=== PATIENT | female | born 1990 | race African-American/Black ===

== ENCOUNTER 2017-02-22 10:39 | Emergency (ER) | payer OTHER ==
[~2017-02-22] VITALS: Ht 157.5 cm; Wt 60.0 kg
[~2017-02-22 10:39] MED LIST: RANI150 PO; ZOFR4TAB3 SL
[2017-02-22 10:41] VITALS: BP 126/72; PULSE 130; RESP 20; TEMP 100.4; O2SAT 100
[2017-02-22 10:44] VITALS: PULSE 129; RESP 20; TEMP 99.7; O2SAT 99
[2017-02-22 11:06] VITALS: TEMP 100.6
[2017-02-22] MEDS ORDERED: ONDANSETRON ODT 4 MG TAB PO ONE (11:15)
--- NOTE | 2017-02-22 11:52 | PD ---
HPI Chief Complaint: Cold / Flu Symptoms Time Seen by Provider: 10:57 Travel History International Travel<30 days: No Contact w/Intl Traveler<30days: No Traveled to known affect area: No History of Present Illness HPI The patient is a 26-year-old [place] female who presents emergency department for cough and cold symptoms. The patient states she developed fever yesterday, subjective, treated with Advil. The patient then developed a mild headache, diffuse body aches, and a mild sore throat. The patient denies any neck pain, cough, but does complain of mild nausea. She denies any vomiting, diarrhea, or abdominal pain. She denies any associated dysuria, frequency, or urgency. However, she does note circular lesions on the labia bilaterally which are painful with urination. She denies any acute vaginal discharge. She is currently sexually active. The patient currently works in social work. PFS Past Medical History Medical History: Denies Significant Hx Hx Anticoagulant Therapy: No Cardiovascular Problems: No Chemotherapy: No Cerebrovascular Accident: No Diabetes: No Diminished Hearing: No Respiratory: Yes (BRONCHITIS) Tetanus Vaccination: < 5 Years ?: Not LMP: 02/10/17 : 0 Para: 0 Miscarriage: 0 : 0 Past Surgical History Surgical History: No Previous Surgery Hysterectomy: No Social History Alcohol Use: Yes (Occassionally) Tobacco Use: No Substance Use: No Allergies-Medications (Allergen,Severity, Reaction): Coded Allergies: No Known Allergies (Unverified , 02/22/17) Reported Meds & Prescriptions Reported Meds & Active Scripts Active Zofran Odt (Ondansetron Odt) 4 Mg Tab 4 Mg SL Q6HR PRN Acyclovir 400 Mg Tab 400 Mg PO TID 10 Days Review of Systems Except as stated in HPI: all other systems reviewed are Neg General / Constitutional: Positive: Fever Eyes: No: Photophobia HENT: Positive: Headaches, Sore Throat Cardiovascular: No: Chest Pain or Discomfort Respiratory: No: Cough, Shortness of Breath Gastrointestinal: Positive: Nausea, No: Vomiting, Diarrhea, Abdominal Pain Genitourinary: Positive: Other (genital lesions) Musculoskeletal: Positive: Myalgias Skin: Positive Other (genital lesions) Physical Exam Narrative GENERAL: Awake, alert, very pleasant 26-year-old female who appears her stated age and is in no acute respiratory distress. SKIN: Focused skin assessment warm/dry. HEAD: Atraumatic. Normocephalic. EYES: Pupils equal and round. No scleral icterus. No injection or drainage. ENT: No nasal bleeding or discharge. Mucous membranes pink and moist. No erythema or exudate noted. NECK: Trachea midline. No JVD. No meningeal signs noted. CARDIOVASCULAR: Regular rate and rhythm. No murmur appreciated. RESPIRATORY: No accessory muscle use. Clear to auscultation. Breath sounds equal bilaterally. GASTROINTESTINAL: Abdomen soft, non-tender, nondistended. No rebound tenderness. Back: No CVA tenderness. Genitourinary: Exam was performed in the presence of a female nurse. External examination reveals lesions bilaterally on the labia which are circular, slightly scalloped, appear to be herpes type lesions. MUSCULOSKELETAL: No obvious deformities. No clubbing. No cyanosis. No edema. NEUROLOGICAL: Awake and alert. No obvious cranial nerve deficits. Motor grossly within normal limits. Normal speech. PSYCHIATRIC: Appropriate mood and affect; insight and judgment normal. Data Data Last Documented VS Vital Signs Date Time Temp Pulse Resp B/P (MAP) Pulse Ox O2 Delivery O2 Flow Rate FiO2 02/22/17 11:06 100.6 02/22/17 10:44 129 20 99 02/22/17 10:41 Room Air Orders Orders Urinalysis - C+S If Indicated (02/22/17 11:12) Influenzae A/B Antigen (02/22/17 11:12) Ondansetron Odt (Zofran Odt) (02/22/17 11:15) Ketorolac Inj (Toradol Inj) (02/22/17 12:00) Acetaminophen (Tylenol) (02/22/17 12:00) Ed Urine Pregnancytest Poc (02/22/17 12:56) Urine Culture (02/22/17 12:50) Labs Laboratory Tests Test 02/22/17 12:50 Urine Color YELLOW Urine Turbidity HAZY Urine pH 6.5 Urine Specific [place] 1.018 Urine Protein TRACE mg/dL Urine Glucose (UA) NEG mg/dL Urine Ketones 40 mg/dL Urine Occult Blood NEG Urine Nitrite NEG Urine Bilirubin NEG Urine Urobilinogen LESS THAN 2.0 MG/DL Urine Leukocyte Esterase LARGE Urine RBC 3 /hpf Urine WBC 50 /hpf Urine Squamous Epithelial Cells 3 /hpf Urine Transitional Epithelial Cells <1 /hpf Urine Bacteria OCC /hpf Microscopic Urinalysis Comment CULTURE INDICATED [facility] Medical Decision Making Medical Screen Exam Complete: Yes Emergency Medical Condition: Yes Medical Record Reviewed: Yes Interpretation(s) Laboratory Tests Test 02/22/17 12:50 Urine Color YELLOW Urine Turbidity HAZY Urine pH 6.5 Urine Specific [place] 1.018 Urine Protein TRACE mg/dL Urine Glucose (UA) NEG mg/dL Urine Ketones 40 mg/dL Urine Occult Blood NEG Urine Nitrite NEG Urine Bilirubin NEG Urine Urobilinogen LESS THAN 2.0 MG/DL Urine Leukocyte Esterase LARGE Urine RBC 3 /hpf Urine WBC 50 /hpf Urine Squamous Epithelial Cells 3 /hpf Urine Transitional Epithelial Cells <1 /hpf Urine Bacteria OCC /hpf Microscopic Urinalysis Comment CULTURE INDICATED Differential Diagnosis Differential diagnosis includes influenza, viral syndrome, pyelonephritis, mononucleosis, gastritis, herpes. Narrative Course Influenza screen and UA were sent to lab. The patient was administered Tylenol 650 mg orally and Zofran 4 mg orally. Bedside UA test was negative. Influenza was negative. The patient is advised to take acyclovir as directed, follow-up with her primary physician, clear liquid diet and advance as tolerated , and to alternate Tylenol and Motrin for pain and fever. Return if symptoms worsen or progress. UA was positive, therefore, patient will be treated with Bactrim twice a day for one week. Diagnosis Primary Impression: Genital herpes Qualified Codes: A60.04 - Herpesviral vulvovaginitis Additional Impressions: Viral syndrome UTI (urinary tract infection) Qualified Codes: N30.00 - Acute cystitis without hematuria Patient Instructions: General Instructions Additional Instructions: Medications as directed. Clear liquid diet and advance as tolerated. Follow- up with her primary physician. Return if symptoms worsen or progress. Work excuse for 2 days. Med/Other Pt SpecificInfo: Prescription(s) given Scripts Sulfamethoxazole-Trimethoprim (Bactrim DS) 800-160 Mg Tab 1 TAB PO BID for Infection, #14 TAB 0 Refills Prov: Solitario Arnold MD 02/22/17 Ondansetron Odt (Zofran Odt) 4 Mg Tab 4 MG SL Q6HR Y for Nausea/Vomiting, #7 TAB 0 Refills Prov: Solitario Arnold MD 02/22/17 Acyclovir (Acyclovir) 400 Mg Tab 400 MG PO TID for Mgmt Viral Infection for 10 Days, TAB 0 Refills Prov: Solitario Arnold MD 02/22/17 Disposition: 01 DISCHARGE HOME Condition: Stable Solitario Arnold MD Feb 22, 2017 11:52
[2017-02-22] MEDS ORDERED: KETOROLAC TROMETHAMINE 30 MG/ML (IVP) VIAL IV PUSH ONE (12:00)
[2017-02-22] MEDS ORDERED: ACETAMINOPHEN 325 MG TAB PO ONE (12:00)
[2017-02-22] MEDS ORDERED: ACYC400T PO (13:20)
[2017-02-22] MEDS ORDERED: ZOFR4TAB3 SL (13:20)
[2017-02-22 13:27] LABS: BACTERIA, URINE OCC /hpf; BLOOD, URINE NEG (NEG); COMMENT (UR) CULTURE INDICATED; CULTURE IF INDICATED CULTURE INDICATED; GLUCOSE,URINE NEG (NEG); KETONE, URINE 40 mg/dL (NEG); NITRITE,URINE NEG (NEG); PH, URINE 6.5 (5.0-8.5); SQUAMOUS EPITHELIAL CELL URINE 3 /hpf (0-5); TRANSITIONAL EPI CELLS, URINE <1 /hpf; URINE COLOR YELLOW (YELLW/STRAW)
[2017-02-22] MEDS ORDERED: BACT800T5 PO (13:34)
== END 2017-02-22 14:12 | disposition home or self-care (01) ==
LOC: NEPD 10:39
DX: A60.00 Herpesviral infection of urogenital system, unspecified (principal); B34.9 Viral infection, unspecified; N39.0 Urinary tract infection, site not specified; R51 Headache
CPT/HCPCS: 81001; 84703; 87086; 87804; 99284